=== PATIENT | male | born 1965 | race Caucasian/White ===

== ENCOUNTER 2019-04-03 08:51 | Observation (INO) | payer OTHER, SELFPAY ==
[2019-04-03] VITALS (14 sets, daily range): BP systolic 127–169; BP diastolic 73–106; PULSE 55–82; RESP 13–20; TEMP 36.5–36.7; O2SAT 95–100; BMI 29.7; BMI 29.4
--- NOTE | 2019-04-03 08:55 | EKG12_ITS ---
Test Reason : CP Blood Pressure : / mmHG Vent. Rate : 064 BPM Atrial Rate : 064 BPM P-R Int : 192 ms QRS Dur : 098 ms QT Int : 406 ms P-R-T Axes : 039 -05 020 degrees QTc Int : 418 ms Normal sinus rhythm Normal ECG Confirmed by AIMEE MCCURDY, VICTORIA ([id number]), general expeditor ANKIT CARUSO ([id number]) on 04/08/2019 10:27:52 AM Referred By: KARRIE Confirmed By:ELOISA YU MD
--- NOTE | 2019-04-03 08:55 | CT_ITS ---
STUDY: CT BRAIN WITHOUT CONTRAST REASON FOR EXAM: Male, 53 years old. Blurred vision in the left eye. RADIATION DOSAGE (If Supplied By Facility): CTDIvol = ( 44.99 ) mGy, DLP = ( 829.85 ) mGycm TECHNIQUE: Transaxial CT imaging of the brain was performed without administration of intravenous contrast material. Individualized dose optimization techniques were used for this CT. COMPARISON: No relevant priors. FINDINGS: Normal soft tissue structures. Normal calvarium. Normal size ventricles and extra-axial spaces for the patient's age. Normal white matter tracts of the cerebral hemispheres. Normal basal ganglia and thalami. Normal brainstem. Normal cerebellum. There is no intracranial hemorrhage. There are no findings of an acute ischemic infarction. Normal visualized paranasal sinuses. CT/Brain/Head without Contrast IMPRESSION: Normal unenhanced CT scan of the brain. Electronically Signed: Charli Birch, at 9:39 EDT , Service support ,
--- NOTE | 2019-04-03 09:01 | RAD_ITS ---
STUDY: X-RAY CHEST REASON FOR EXAM: Male, 53 years old. Chest pain. TECHNIQUE: Single AP portable view of the chest. COMPARISON: Comparison is made with prior examination dated May 23, 2012. FINDINGS: The lungs are clear and expanded. Scattered calcified granulomas. There is no demonstrated pleural abnormality. Normal size heart. Normal mediastinum and cherry. Normal visualized pulmonary arteries. Normal visualized aortic arch and descending thoracic aorta. There are diffuse degenerative changes of the visualized thoracic spine. Normal visualized ribs, clavicles, and shoulders. There is no demonstrated abnormality of the visualized soft tissue structures of the upper abdomen. RAD/Chest 1 View (Portable) IMPRESSION: No acute abnormality is seen. Stable examination. Electronically Signed: Charli Birch, at 9:30 EDT , Service support ,
--- NOTE | 2019-04-03 09:04 | ED.VIS.GEN ---
History of Present Illness Chief Complaint: Chest Pain Informant: Patient Onset: Days Context: Gradual Onset Timing: Intermittent Current Severity: Moderate Maximum Severity: Moderate Narrative: The patient presents to the emergency department with intermittent chest tightness and changes in vision in the right eye. The patient states last week, he noticed that his right eye seemed hazy. He states that it was more blurry throughout the entire eye. He denied headache at the time. He states he is been dealing with a lot of anxiety and actually follow with his primary care 3 days ago and started Celexa. He states today, it returned. He states that just seems like there is more blurriness in the right eye. He states he started to worry and went and had his blood pressure checked. He states that his blood pressure was elevated at 150/110. Normally, his blood pressure 1 in the 120 systolic. He does take antihypertensives. He states that he was feeling tightness across his chest that he contributed to anxiety. It was not radiating. It is not exertional. Patient does endorse a stressful job. He denies any trouble with speech. He denies any changes in gait. He denies any weakness. Prior similar symptoms: No Recent Illness/Hospitalization: No Past Medical History - Allergies and Home Meds Allergies/Adverse Reactions: Allergies acetaminophen [From Percocet] Allergy (Verified 04/03/19 08:56) Itching oxycodone [From Percocet] Allergy (Verified 04/03/19 08:56) Itching Primary Care Physician: Chiki Coyne MD [STAFF PHYSICIAN] - Prior records reviewed: Yes Past Medical History: - - htn Surgical History: noncontributory Lives: With Family Smoking Status: Never smoker Alcohol: None Review of Systems General: Denies: Chills, Fever, Sweats Eyes: Reports: Blurred vision - right. Denies: Visual changes - bilaterally, Diplopia ENT: Denies: Rhinorrhea, Sore throat Cardiovascular: Reports: Chest pain. Denies: Palpitations Respiratory: Denies: Dyspnea, Cough, Dyspnea on exertion Gastrointestinal: Denies: Abdominal pain, Nausea, Vomiting, Diarrhea, Melena, Hematochezia Genitourinary: Denies: Dysuria, Hematuria, Frequency Musculoskeletal: Denies: Back pain, Extremity Pain Skin: Denies: Rash, Wounds Neurological: Denies: Headache, Weakness, Numbness Physical Exam Vital Signs/Narrative: Vital Signs Temp Pulse Resp BP Pulse Ox 04/03/19 08:59 65 20 H 145/105 H 99 04/03/19 08:52 97.7 F L 66 17 169/106 H 96 Diagnostic/Tx/Re-eval Chest X-Ray - ED: 1 View, Read by ED Physician, Read by Radiologist, Normal, Heart, Lungs Clinical Impression(s) from Imaging Studies Brain CT 04/03/19 08:55 IMPRESSION: Normal unenhanced CT scan of the brain. Electronically Signed: Charli Queta, at 9:39 EDT , Service support , Chest X-Ray 04/03/19 09:01 IMPRESSION: No acute abnormality is seen. Stable examination. Electronically Signed: Charli Queta, at 9:30 EDT , Service support , Abnormal Lab Results 04/03/19 04/03/19 09:05 09:05 WBC 7.7 RBC 4.98 Hgb 15.2 Hct 45.9 MCV 92.2 MCH 30.5 MCHC 33.1 RDW Std Deviation 40.3 RDW Coeff of Yang 11.9 Plt Count 250 MPV 8.9 Immature Gran % (Auto) 0.300 Neut % (Auto) 70.8 H Lymph % (Auto) 19.2 [place] % (Auto) 8.4 Eos % (Auto) 0.9 Baso % (Auto) 0.4 Absolute Neuts (auto) 5.4 Absolute Lymphs (auto) 1.47 Nucleated RBC % 0 Sodium 140 Potassium 4.1 Chloride 106 Carbon Dioxide 26.0 Anion Gap 8 BUN 18 Creatinine 1.41 H Estim Creat Clear Calc 59.89 Est GFR (MDRD) Af Amer 67 Est GFR (MDRD) Non-Af 56 L BUN/Creatinine Ratio 12.8 Glucose 111 H Calcium 9.1 Magnesium 2.1 Troponin I < 0.015 TSH 1.18 - Rhythm Strip Rhythm Strip: Sinus Rhythm Rate: 70 Ectopy: None - EKG Initial EKG Interpretation: Sinus Rhythm, No Acute Injury Pattern Prior: Unchanged - Medical Decision Making The patient really had no chest pain. He was complaining of some mild tightness that was not exertional. He is been having intermittent visual changes within the right eye. There is no visual field cut. He has normal extraocular muscles. He has an NIH of 0. Metabolic work-up was pursued. EKG was obtained on patient arrival which showed sinus rhythm without acute ischemia. It was unchanged from prior. The patient's blood pressure had basically normalized without intervention. I did obtain a head CT which was unremarkable. I am not sure if the symptoms or related more towards TIA or hypertension. I long discussion with the patient at the bedside. They are uncomfortable without having definitive diagnosis. Given his age and significant risk factors, I do feel a TIA work-up would be appropriate. The patient was discussed with the hospitalist. 1. Right eye visual change 2. TIA ED Disposition - Plan for ED Patient: Instructions: Blurred Vision, CHEST PAIN, Uncertain Cause Referrals: Chiki Coyne MD [STAFF PHYSICIAN] -
[2019-04-03] MEDS: 0.9% Normal Saline 1,000 ML 150 ML IV (09:12)
[2019-04-03] MEDS: Aspirin 81 MG TAB.CHEW 324 MG PO (09:12)
[2019-04-03 09:16] LABS: Absolute Lymphocyte Count 1.47 X10^3/uL (0.83-4.51); Absolute Neutrophil Count 5.4 X10^3/uL (2.0-7.7); Basophil# 0.03 X10^3/uL; Basophil% 0.4 % (0-1); Eosinophil# 0.07 X10^3/uL; Eosinophils% 0.9 % (0-5); Hematocrit 45.9 % (40-54); Hemoglobin 15.2 g/dL (13.0-16.5); Lymphocyte # 1.47 X10^3/ul (4.0); Lymphocyte % 19.2 % (19-41); Mean Corp Hgb Conc 33.1 g/dL (32-36); Mean Corpuscular Hgb 30.5 pg (27.0-32.0); Mean Corpuscular Volume 92.2 fL (80-94); Mean Platelet Vol. 8.9 fl (6.2-12.0); Monocyte# 0.64 X10^3/uL; Monocyte% 8.4 % (0-10); NRBC Flagged by Analyzer 0 % (0-5); Neutrophil # 5.43 X10^3/uL (2.7-7.7); Neutrophil % 70.8 % (47-70); Platelet Count 250 K/mm3 (150-450); RBC Distribution Width CV 11.9 % (11.6-14.6); RBC Distribution Width SD 40.3 fl (35.1-43.9); Red Blood Count 4.98 M/mm3 (4.6-6.2); White Blood Count 7.7 K/mm3 (4.4-11.0)
[2019-04-03 09:38] LABS: Anion Gap 8 (5-15); BUN 18 mg/dL (7-18); BUN/Creat Ratio 12.8 RATIO (10-20); Calcium,Total 9.1 mg/dL (8.5-10.1); Chloride 106 mmol/L (98-107); Creatinine, Serum 1.41 mg/dL (0.70-1.30); EST Glomerular Filtration Rate 56 mL/min (>60); Est Glom Filt Rate - Afr Amer 67 mL/min (>60); Estimated Creatinine Clearance 59.89 ml/min; Glucose 111 mg/dL (74-106); Magnesium 2.1 mg/dL (1.6-2.6); Potassium 4.1 mmol/L (3.5-5.1); Sodium Level 140 mmol/L (136-145); Thyroid Stim Hormone (TSH) 1.18 uIU/mL (0.358-3.74)
--- NOTE | 2019-04-03 10:42 | NURSING ---
DR JENNIE YOON
--- NOTE | 2019-04-03 10:47 | NURSING ---
PCU TIA OBS SEMENTI
--- NOTE | 2019-04-03 11:53 | MRI_ITS ---
STUDY: MRA NECK WITHOUT CONTRAST REASON FOR EXAM: Male, 53 years old. Blurry vision TECHNIQUE: Source images were obtained, MIPs were performed. The study was performed unenhanced. COMPARISON: None. FINDINGS: RIGHT CAROTID ARTERIES: Normal right common carotid artery (CCA). There is moderate atherosclerotic plaque formation with moderate narrowing of the carotid bulb. There is moderate atherosclerotic plaque formation of the origin of the right internal carotid artery with an estimated stenosis of 50-69% stenosis. Normal visualized cervical portion of the right internal carotid artery. Normal origin of the right external carotid artery (ECA). LEFT CAROTID ARTERIES: Normal left common carotid artery (CCA). There is moderate atherosclerotic plaque formation with moderate narrowing of the carotid bulb. There is mild atherosclerotic plaque formation of the origin of the left internal carotid artery with less than 50% cross sectional diameter stenosis. Normal visualized cervical portion of the left internal carotid artery. Normal origin of the left external carotid artery (ECA). VERTEBRAL ARTERIES: Normal antegrade flow within the bilateral vertebral artery without a hemodynamically significant stenosis. MRI/MRA Neck without Contrast IMPRESSION: 1. Moderate (60%) stenosis right carotid stenosis. 2. Mild (40%) left carotid stenosis. 3. Patent vertebral arteries bilaterally. Electronically Signed: Abraham Gresham MD at 15:57 EDT Tel , Service support ,
--- NOTE | 2019-04-03 11:53 | MRI_ITS ---
STUDY: MRA OF THE HEAD WITHOUT CONTRAST REASON FOR EXAM: Male, 53 years old. Headache with blurred vision in right eye TECHNIQUE: 3-D [id number] (TOF) imaging was performed with MIPs. The study was performed unenhanced. COMPARISON: None. FINDINGS: Normal bilateral petrous carotid arteries. Normal right cavernous carotid artery with a normal supraclinoid bifurcation. Normal left cavernous carotid artery with a normal supraclinoid bifurcation. Normal right A1 segments of the anterior cerebral artery. Normal left A1 segments of the anterior cerebral artery. Anterior communicating artery not visualized consistent with normal variant Normal bilateral A2 segments of the anterior cerebral arteries. Normal right M1 and M2 segments of the middle cerebral arteries, with a normal M1 bifurcation. Normal left M1 and M2 segments of the middle cerebral arteries, with a normal M1 bifurcation. Posterior communicating arteries not visualized consistent with normal variant). Normal bilateral vertebral arteries. Normal basilar artery with a normal basilar bifurcation. The visualized bilateral superior cerebellar (SCA) arteries are normal. Normal bilateral P1, P2 and visualized P3 segments of the posterior cerebral arteries. There is no demonstrated aneurysm of the [place]. There is no major vessel occlusion or hemodynamically significant stenosis. There is no demonstrated abnormality of the visualized brain. MRI/MRA Head ONLY without Contrast IMPRESSION: Normal MRA of the head Electronically Signed: Chiki Powers MD at 16:34 EDT , Service support ,
--- NOTE | 2019-04-03 11:53 | MRI_ITS ---
STUDY: MRI BRAIN WITHOUT CONTRAST REASON FOR EXAM: Male, 53 years old. Headache, blurry vision TECHNIQUE: Standardized multiplanar fat and water weighted pulse sequences were obtained. COMPARISON: CT earlier today FINDINGS: Normal size of the ventricles and extra-axial spaces for the patient's age. Normal white matter tracts of the supratentorial brain. There is no evidence for recent intracranial ischemia or other cause of cytotoxic edema on diffusion weighted imaging (DWI). Normal T2* images of the brain without demonstrated susceptibility artifact. There is no demonstrated hemosiderin stain. Normal bilateral basal ganglia. Normal thalami. There is no extra-axial fluid accumulation. Normal flow voids within the major intracranial circulation suggesting patency by spin echo criteria. Normal sella turcica, pituitary gland, infundibular stalk, optic chiasm and hypothalamus. Normal tectal plate and pineal gland. Normal midbrain, brittni and medulla. Normal cerebellum. Normal basal cisterns. Normal bilateral temporal bones. Normal bilateral internal auditory canals. No demonstrated orbital abnormality, within the constraints of a routine brain study. Normal visualized paranasal sinuses. Normal calvarium and skull base. Normal visualized soft tissue structures. Normal visualized upper cervical spine. MRI/Brain without Contrast IMPRESSION: Normal unenhanced MRI of the brain. Electronically Signed: Abraham Gresham MD at 15:59 EDT Tel , Service support ,
[2019-04-03 12:04] LABS: Erythrocyte Sedimentation Rate 2 mm/hr (0-20)
--- NOTE | 2019-04-03 12:06 | EKG12_ITS ---
Test Reason : CP Blood Pressure : / mmHG Vent. Rate : 054 BPM Atrial Rate : 054 BPM P-R Int : 196 ms QRS Dur : 096 ms QT Int : 440 ms P-R-T Axes : 044 -06 012 degrees QTc Int : 417 ms Sinus bradycardia Otherwise normal ECG Confirmed by MALIK MCCURDY, MEMO ([id number]), publication editor ANKIT CARUSO ([id number]) on 04/08/2019 11:50:46 AM Referred By: JENNIE Confirmed By:MEMO GAN MD
--- NOTE | 2019-04-03 12:16 | HP.PCM_ITS ---
Problem List (1) HTN (hypertension) Status: Chronic (2) Anxiety Status: Chronic History of Present Illness Date of Admission: 04/03/19 Chief Complaint: Chest pressure, right eye vision changes. The patient is a 53 year old M who presents the emergency room due to right eye vision changes and intermittent chest tightness. He reports he initially noticed right eye white spots approximately 1 week ago which he contributed to high blood pressure. Patient reports he has been having increased anxiety and saw his primary care provider for help with this. He was placed on Celexa and has been taking it for 3 days. He denies numbness, tingling, weakness, speech changes or headache. He reports today he was at work sitting down and again developed right eye vision changes. He also reports during that time he had a b rief episode of chest tightness. 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 He reports this is high for him and his systolic blood pressure typically runs. Given his vision changes and chest discomfort, he was referred to the emergency room. He reports a few weeks ago he had some shortness of breath which has since resolved. He denies exertional shortness of breath or chest pain. He has a past medical history of hypertension and anxiety. Past Medical History Past Medical History (Chronic Problems): Chronic Problems HTN (hypertension) (Chronic) Anxiety (Chronic) Allergies acetaminophen [From Percocet] Allergy (Verified 04/03/19 08:56) Itching oxycodone [From Percocet] Allergy (Verified 04/03/19 08:56) Itching Home Medications: Ambulatory Orders Medication Instructions Recorded Citalopram [Celexa] 20 mg PO DAILY 04/03/19 Lisinopril [Zestril] 5 mg PO DAILY 04/03/19 Metoprolol Tartrate [Lopressor 25 mg PO BID 04/03/19 (beta sang)] Surgical History: appendectomy, - - Status post nephrectomy, knee surgery, back surgery x3. Psychiatric History: Anxiety Lives: With Family Smoking Status: Never smoker Alcohol: Occasional Drugs: None - *Family History Maternal History Items: Heart Disease, Hypertension Paternal History Items: Stroke Review of Systems Constitutional: Denies: Chills, Fever, Weight Change HEENT: Denies: Head Aches, Sinus Congestion, Sinus Drainage Cardiovascular: Reports: - - Intermittent chest tightness. Denies: Chest Pain, Palpitations Respiratory: Denies: Cough, Shortness of breath at rest, Sputum production Gastrointestinal: Denies: Abdominal Pain, Nausea, Vomiting Genitourinary: Denies: Dysuria Musculoskeletal: Denies: Joint Pain, Joint Tenderness Skin: Denies: Rash, Wounds Neurological: Reports: Blurred vision - Right eye. Denies: Change in Speech, Slurred speech, Confusion, Focal weakness, Numbness, Tingling Psychiatric: Reports: Anxiety Hematologic/ Lymphatic: Denies: Easy Bruising, Easy Bleeding VTE Information - Inpt Only VTE Present on Admission: No VTE Mechan Device Prophylaxis: None VTE Pharm Prophylaxis ordered?: Yes - Physical Exam General: Alert, Oriented x3, Cooperative HEENT: Atraumatic, PERRLA, EOMI, Normocephalic Neck: Supple, No JVD, Negative Carotid Bruits Lungs: Clear to auscultation, Normal air movement Cardiovascular: Regular rate, Regular Rhythm, Normal S1, Normal S2, No murmurs Abdomen: Bowel Sounds Present, Soft, Non Tender, Non-Distended Extremities: No clubbing, No cyanosis, No edema, Capillary Refill Less than 3 Seconds Skin: No rashes, No breakdown Musculoskeletal: No Tenderness to Palpation of Joints or Extremities Neurological: Cranial nerves II-XII grossly intact, Neuro grossly intact Psych/Mental Status: Anxious Vital Signs Temp Pulse Resp BP Pulse Ox 97.8 F 60 16 133/85 H 99 04/03/19 11:42 04/03/19 11:53 04/03/19 11:42 04/03/19 11:42 04/03/19 11:42 Oxygen Delivery Method Room Air Weight: 193 lb 9.6 oz Body Mass Index (BMI) 29.4 Laboratory Tests Past 24 Hrs 04/03/19 04/03/19 04/03/19 09:05 09:05 09:05 WBC 7.7 RBC 4.98 Hgb 15.2 Hct 45.9 MCV 92.2 MCH 30.5 MCHC 33.1 RDW Std Deviation 40.3 RDW Coeff of Yang 11.9 Plt Count 250 MPV 8.9 Immature Gran % (Auto) 0.300 Neut % (Auto) 70.8 H Lymph % (Auto) 19.2 [place] % (Auto) 8.4 Eos % (Auto) 0.9 Baso % (Auto) 0.4 Absolute Neuts (auto) 5.4 Absolute Lymphs (auto) 1.47 Nucleated RBC % 0 ESR 2 Sodium 140 Potassium 4.1 Chloride 106 Carbon Dioxide 26.0 Anion Gap 8 BUN 18 Creatinine 1.41 H Estim Creat Clear Calc 59.89 Est GFR (MDRD) Af Amer 67 Est GFR (MDRD) Non-Af 56 L BUN/Creatinine Ratio 12.8 Glucose 111 H Calcium 9.1 Magnesium 2.1 Troponin I < 0.015 TSH 1.18 Assessment/Plan 1. Chest tightness, rule out ACS-initial troponin negative. EKG without ST-T changes. Trend enzymes. Stress test in a.m. Continue aspirin, beta-sang. 2. Right eye vision changes, rule out CVA-PT/OT/ST. Aspirin, statin. Lipid panel in a.m. Brain CT unremarkable. Obtain MRI of brain, MRA of head and neck. 3. Anxiety-recently started on Celexa by primary care provider. Recommend outpatient counseling as well. 4. Hypertension-lisinopril on hold, continue metoprolol regimen. As needed hydralazine for systolic blood pressure greater than 160. 5. Chronic kidney disease stage III, status post nephrectomy secondary to donated kidney-Per patient, creatinine at baseline. Gentle IV fluids, trend BMP. DVT prophylaxis-Lovenox subcu This patient was seen by DASH Ferrara under the supervision of Dr. Cooney.
[2019-04-03] MEDS: 0.9% Normal Saline 1,000 ML 125 ML IV ×2 (12:19→21:54)
--- NOTE | 2019-04-03 12:52 | CASEMGMT ---
Pt informed nurse that he does have LW and HCPOA and he is aware there is not a copy in his medical record and he will bring a copy in. TILA Thornton
[2019-04-03] MEDS: 0.9% NaCl Peripheral Flush Adult/Peds IV (15:45)
--- NOTE | 2019-04-03 18:00 | CDU_ITS ---
Reason For Study: carotid stenosis by MRA Rt. Velocities/BP Lt. Velocities/BP Prox CCA 126.8/31.7 cm/sec. Prox CCA 127.1/34.0 cm/sec. Mid CCA 93.0/26.5 cm/sec. Mid CCA 116.2/34.0 cm/sec. Dist CCA 89.0/27.8 cm/sec. Dist CCA 107.0/30.3 cm/sec. Prox ICA 72.5/26.9 cm/sec. Prox ICA 94.4/18.3 cm/sec. Mid ICA 77.7/29.5 cm/sec. Mid ICA 88.3/30.6 cm/sec. Dist ICA 70.0/31.6 cm/sec. Dist ICA 79.7/35.5 cm/sec. Rt. ICA/CCA = 77.7/93.0=0.8. Lt. ICA/CCA = 94.4/116.2=0.8. Prox ECA 84.2/12.5 cm/sec. Prox ECA 91.6/16.7 cm/sec. Rt. Vert. 443./15.0 cm/sec. Lt. Vert. 63.6/24.1 cm/sec. Right Extracranial There is intimal thickening but no significant atherosclerotic plaque noted in the right common carotid artery. There is intimal thickening but no significant atherosclerotic plaque noted in the right internal carotid artery. Distal ICA is tortuous. There is no significant atherosclerotic plaque noted in the right external carotid artery. Antegrade flow is noted in the right vertebral artery. Left Extracranial There is intimal thickening but no significant atherosclerotic plaque noted in the left common carotid artery. There is intimal thickening but no significant atherosclerotic plaque noted in the left internal carotid artery. There is intimal thickening but no significant atherosclerotic plaque noted in the left external carotid artery. Antegrade flow is noted in the left vertebral artery. Procedure Carotid Duplex [id number]. The exam was diagnostic. Exam performed in department. Interpretation Summary Minimal plague right mid common carortid No significant plague right internal carotid with <50% stenosis. Tortuous right internal carotid. <50% stenosis right external carotid. Intimal thickening left common carotid <50% stenosis left internal carotid. <50% stenosis left external carotid Patent and antegrade vertebrals bilaterally Ordering Physician: Ayesha Cooney Referring Physician: Samuel Meeks Performed By: Balbina Joya RDCS, RVT
[2019-04-03] MEDS: Metoprolol Tartrate 25 MG Tablet PO (21:26)
[2019-04-03] MEDS: Atorvastatin Calcium 80 MG Tablet PO (21:27)
[2019-04-04] VITALS (10 sets, daily range): BP systolic 111–137; BP diastolic 66–86; PULSE 55–72; RESP 16–18; TEMP 36.2–36.6; O2SAT 97–100
--- NOTE | 2019-04-04 05:55 | EKG12_ITS ---
Test Reason : AM EKG Blood Pressure : / mmHG Vent. Rate : 055 BPM Atrial Rate : 055 BPM P-R Int : 192 ms QRS Dur : 100 ms QT Int : 448 ms P-R-T Axes : 059 014 011 degrees QTc Int : 428 ms Sinus bradycardia Nonspecific T- wave Abnormality Confirmed by MALIK MCCURDY, MEMO ([id number]), editor book ANKIT CARUSO ([id number]) on 04/08/2019 11:50:19 AM Referred By: JENNIE Confirmed By:MEMO GAN MD
[2019-04-04] MEDS: Lisinopril 10 MG Tablet PO (06:26)
[2019-04-04] MEDS: Aspirin E.C. 81 MG Tablet PO (06:26)
[2019-04-04 06:33] LABS: ALB/GLOB Ratio 1.1 RATIO (0.9-2.4); AST(SGOT) 7 U/L (15-37); Alanine Aminotransfer ALT/SGPT 15 U/L (16-61); Albumin, Serum 3.3 g/dL (3.2-5.0); Alkaline Phosphatase 36 U/L (45-117); Anion Gap 6 (5-15); BUN 14 mg/dL (7-18); BUN/Creat Ratio 10.9 RATIO (10-20); Calcium,Total 8.2 mg/dL (8.5-10.1); Chloride 110 mmol/L (98-107); Cholesterol 148 mg/dL (200); Creatinine, Serum 1.29 mg/dL (0.70-1.30); EST Glomerular Filtration Rate 62 mL/min (>60); Est Glom Filt Rate - Afr Amer 74 mL/min (>60); Estimated Creatinine Clearance 63.33 ml/min; Globulin 2.9 g/dL (2.2-4.2); Glucose 101 mg/dL (74-106); High Density Lipoprotein 40 mg/dL; Potassium 3.9 mmol/L (3.5-5.1); Protein, Total 6.2 g/dL (6.4-8.2); Sodium Level 142 mmol/L (136-145); Triglycerides 83 mg/dL; Very Low Density Lipoprotein 17 mg/dL (5-40)
[2019-04-04] MEDS: 0.9% Normal Saline 1,000 ML 125 ML IV (09:24)
[2019-04-04] MEDS: Citalopram 20 MG Tablet PO (09:25)
[2019-04-04] MEDS: Metoprolol Tartrate 25 MG Tablet PO (09:25)
--- NOTE | 2019-04-04 10:00 | STRESSREP ---
Stress Test Report Exercise myocardial perfusion stress test. 53-year-old man with a history of dizziness. Stress protocol: Resting EKG demonstrates sinus bradycardia with a rate of 54 bpm normal intervals are noted resting blood pressures 136/82 mmHg. The patient exercised according to regular Vicente protocol for total duration of 11 minutes completing 2 minutes into stage IV. The maximum heart rate attained was 141 bpm which was 84% of maximum predicted heart rate the maximum workload was 11.6 metabolic equivalents. At rest there were no ST or T wave changes no suggest ischemia peak exercise upsloping ST changes only were noted with no meet the criteria for ischemia. No clinical angina was noted. The resting blood pressure 136/82 with a peak blood pressure 166/78. Myocardial perfusion protocol. 11.8 mCi of technetium 99m sestamibi was injected at rest. The patient exercised according to regular Vicente protocol peak exercise 33.3 mCi of technetium 99m sestamibi was injected stress images were obtained stress and rest images were reconstructed and compared in the short axis vertical and horizontal long axis. Gated images were also obtained Perfusion SPECT analysis: Review of the stress images demonstrate normal uptake of tracer noted in all rest myocardium the rest images similar demonstrate normal uptake of tracer noted in all rest myocardium no areas of reversibility are noted suggest ischemia no previous infarct is noted. Gated SPECT analysis: The gated ejection fraction is noted to be 66% [place] Conclusion: Normal exercise myocardial perfusion stress test with no evidence of ischemia. Preserved ejection fraction.
--- NOTE | 2019-04-04 10:54 | PCM.WORK.EX ---
Work/School Excuse Work/School Excuse for:: Patient Please excuse this person from:: Work From: 04/03/19 through: 04/14/19
--- NOTE | 2019-04-04 11:02 | PCM.DC ---
- Discharge Diagnoses Current Active Problems: Current Active and Chronic Problems HTN (hypertension) Chest pressure, ACS ruled out Right eye vision changes, TIA/CVA ruled out You will use the following diet at home:: Other - Low-fat, low-cholesterol Discharge Activity: Return to Normal Activity Call your doctor if you observe: Shortness of breath, Dizziness, Fainting spells, Chest pain Allergies/Adverse Reactions: Allergies acetaminophen [From Percocet] Allergy (Verified 04/03/19 08:56) Itching oxycodone [From Percocet] Allergy (Verified 04/03/19 08:56) Itching Medications to take at Discharge Citalopram [Celexa] 20 mg PO DAILY 04/03/19 Metoprolol Tartrate [Lopressor (beta sang)] 25 mg PO BID 04/03/19 Atorvastatin Calcium [Lipitor] 10 mg PO QHS #60 tab 04/04/19 Lisinopril [Zestril] 10 mg PO DAILY #60 tab 04/04/19 The following prescriptions were given: Atorvastatin Calcium [Lipitor] 10 mg PO QHS #60 tab Transmission Status: Pending to [facility] Lisinopril [Zestril] 10 mg PO DAILY #60 tab Transmission Status: Pending to [facility] Primary Care Physician: Chiki Coyne MD [STAFF PHYSICIAN] - Please follow up with your Primary Care Physician in: Ophthalmology, within 1 week. Test Results: Test results from this visit will be discussed in further detail at your follow-up appointment, if applicable. Please Follow Up With: Samuel Meeks III, MD When: Within one week. Please Follow Up With: Primary Waiter/Waitress Bar When: 3-6 months for routine follow up. Proposed Discharge Date: 04/04/19
--- NOTE | 2019-04-04 11:09 | PCM.DC.SUM ---
Discharge Date and Diagnosis Date of Admission: 04/03/19 Date of Discharge: 04/04/19 - Primary Discharge Diagnosis 1. Chest tightness, ACS ruled out 2. Right eye vision changes, CVA ruled out 3. Anxiety, worsened recently 4. Hypertension 5. Chronic kidney disease stage II-III, status post nephrectomy 6. Mild to moderate carotid stenosis - Secondary Discharge Diagnosis Chronic Problems HTN (hypertension) (Chronic) Anxiety (Chronic) Hospital Course and Treatment Imaging Results: Diagnostic Data Brain CT 04/03/19 08:55 IMPRESSION: Normal unenhanced CT scan of the brain. Electronically Signed: Charli Queta, at 9:39 EDT , Service support , Chest X-Ray 04/03/19 09:01 IMPRESSION: No acute abnormality is seen. Stable examination. Electronically Signed: Charli Birch, at 9:30 EDT , Service support , Brain MRI 04/03/19 11:53 IMPRESSION: Normal unenhanced MRI of the brain. Electronically Signed: Abraham Gresham MD at 15:59 EDT Tel , Service support , Head MRA 04/03/19 11:53 IMPRESSION: Normal MRA of the head Electronically Signed: Chiki Powers MD at 16:34 EDT , Service support , Neck MRA 04/03/19 11:53 IMPRESSION: 1. Moderate (60%) stenosis right carotid stenosis. 2. Mild (40%) left carotid stenosis. 3. Patent vertebral arteries bilaterally. Electronically Signed: Abraham Gresham MD at 15:57 EDT Tel , Service support , Operations: None Procedures: EKG, Stress test, - - Carotid ultrasound Summary of Care Provided: The patient is a 53 year old M admitted 04/03/2019 due to chest pressure and right eye vision changes. 1. Chest tightness, ACS ruled out-troponin negative. EKG without ST-T changes. Patient underwent stress test which showed no evidence of ischemia, gated ejection fraction 66%. Follow-up with primary care physician in 1 week. 2. Right eye vision changes, CVA ruled out- Brain CT unremarkable. MRI of brain normal. MRA of head normal. MRA of neck showed moderate, 60% stenosis right carotid and mild 40% left carotid stenosis. 3. Anxiety-recently started on Celexa by primary care provider. Recommend outpatient counseling as well. 4. Hypertension-Home lisinopril regimen increased to 10 mg daily. Continue home metoprolol regimen. 5. Chronic kidney disease stage II-III, status post nephrectomy secondary to donated kidney-creatinine improved from 1.4-1.2 with IV fluids. Patient reports his baseline creatinine is about 1.4-1.5. Recommend at least yearly routine follow-up with primary regulator pin inserter at [facility]. 6. Carotid artery disease- MRA of neck showed moderate, 60% stenosis right carotid and mild 40% left carotid stenosis. Carotid ultrasound results pending, preliminary shows no significant stenosis. Initiated on low-dose atorvastatin 10 mg p.o. nightly. Recommend further follow-up with PCP for routine monitoring. General: Alert, Oriented x3, Cooperative HEENT: Atraumatic, PERRLA, EOMI, Normocephalic Neck: Supple, No JVD, Negative Carotid Bruits Lungs: Clear to auscultation, Normal air movement Cardiovascular: Regular rate, Regular Rhythm, Normal S1, Normal S2, No murmurs Abdomen: Bowel Sounds Present, Soft, Non Tender, Non-Distended Extremities: No clubbing, No cyanosis, No edema, Capillary Refill Less than 3 Seconds Skin: No rashes, No breakdown Musculoskeletal: No Tenderness to Palpation of Joints or Extremities Neurological: Cranial nerves II-XII grossly intact, Neuro grossly intact Psych/Mental Status: Anxious Patient seen and examined prior to discharge. Physical assessment as noted above. Patient is stable for discharge with follow up recommendations as noted above. This patient was seen by DASH Ferrara under the supervision of Dr. Cooney. - Physical Exam Vital Signs Temp Pulse Resp BP Pulse Ox 97.9 F 71 16 112/81 H 100 04/04/19 09:02 04/04/19 09:25 04/04/19 09:02 04/04/19 09:25 04/04/19 09:02 Oxygen Delivery Method Room Air Weight: 193 lb 9.583 oz Body Mass Index (BMI) 29.4 Orthostatic Vital Signs Start: 04/04/19 06:23 Freq: q24h Status: Active Protocol: Activity Type Activity Date Activity User E-Sign Co-Sign Detail Recorded Client Recorded Date Recorded By Document 04/04/19 06:23 CAD [id number] 04/04/19 06:26 CAD 04/04/19 06:23 Orthostatic Vitals Standing -Blood Pressure (90/60-120/80) 111/83 H -Extremity Use Right Arm -Pulse Rate (60-100) 62 Sitting -Blood Pressure (90/60-120/80) 135/84 H -Extremity Use Right Arm -Pulse Rate (60-100) 57 L Lying -Blood Pressure (90/60-120/80) 129/86 H -Extremity Use Right Arm -Pulse Rate (60-100) 57 L Intake and Output for Last 24 Hours 04/02/19 04/03/19 04/04/19 23:59 23:59 23:59 Intake Total 1958.59 / 1959.59 1219.58 / 1219.58 Balance 9.59 / 1959.59 1219.58 / 1219.58 Laboratory Tests Past 24 Hrs 04/03/19 04/03/19 04/03/19 09:05 12:15 17:36 ESR 2 Sodium Potassium Chloride Carbon Dioxide Anion Gap BUN Creatinine Estim Creat Clear Calc Est GFR (MDRD) Af Amer Est GFR (MDRD) Non-Af BUN/Creatinine Ratio Glucose Calcium Total Bilirubin AST ALT Alkaline Phosphatase Troponin I < 0.015 < 0.015 Total Protein Albumin Globulin Albumin/Globulin Ratio Triglycerides Cholesterol LDL Cholesterol VLDL Cholesterol HDL Cholesterol 04/04/19 05:05 ESR Sodium 142 Potassium 3.9 Chloride 110 H Carbon Dioxide 26.0 Anion Gap 6 BUN 14 Creatinine 1.29 Estim Creat Clear Calc 63.33 Est GFR (MDRD) Af Amer 74 Est GFR (MDRD) Non-Af 62 BUN/Creatinine Ratio 10.9 Glucose 101 Calcium 8.2 L Total Bilirubin 1.20 H AST 7 L ALT 15 L Alkaline Phosphatase 36 L Troponin I Total Protein 6.2 L Albumin 3.3 Globulin 2.9 Albumin/Globulin Ratio 1.1 Triglycerides 83 Cholesterol 148 LDL Cholesterol 91 VLDL Cholesterol 17 HDL Cholesterol 40 Discharge Diet: Low fat/ Low Cholesterol Discharge Activity: Return to Normal Activity Call your doctor if you observe: Shortness of breath, Dizziness, Fainting spells, Chest pain Home Medications: Medications to take at Discharge Citalopram [Celexa] 20 mg PO DAILY 04/03/19 Metoprolol Tartrate [Lopressor (beta sang)] 25 mg PO BID 04/03/19 Atorvastatin Calcium [Lipitor] 10 mg PO QHS #60 tab 04/04/19 Lisinopril [Zestril] 10 mg PO DAILY #60 tab 04/04/19 Following Prescrptions Were Given to Patient: Atorvastatin Calcium [Lipitor] 10 mg PO QHS #60 tab Transmission Status: Received by [facility] Lisinopril [Zestril] 10 mg PO DAILY #60 tab Transmission Status: Received by [facility] Primary Care Physician: Chiki Coyne MD [STAFF PHYSICIAN] - Please follow up with your Primary Care Physician in: Ophthalmology, within 1 week. Please Follow Up With: Samuel Meeks III, MD When: Within one week. Please Follow Up With: Primary Disability Liaison Officer When: 3-6 months for routine follow up. Disposition: Home Minutes spent on discharge:: 35 Patient Condition:: Stable Medical Necessity - Tobacco Use Smoking Status: Never smoker Meaningful Use Info Meaningful Use Diagnoses (Choose all that apply): None applicable
--- NOTE | 2019-04-04 12:16 | NURSING ---
reviewed dsicharge instructions with patient & voiced understanding , will follow up with PCP next week
== END 2019-04-04 11:05 | disposition home or self-care (01) ==
LOC: ED 09:18 → PCU 11:00
PROVIDERS: Nurse Practitioner Family; Admitting Provider Internal Medicine; Emergency Provider Emergency Medicine; Family Provider Family Medicine; PCP Family Medicine; Visit Provider Internal Medicine
DX: R07.89 Other chest pain (principal); F41.9 Anxiety disorder, unspecified; Z79.899 Other long term (current) drug therapy; I12.9 Hypertensive chronic kidney disease with stage 1 through stage 4 chronic kidney disease, or unspecified chronic kidney disease; N18.3 Chronic kidney disease, stage 3 (moderate); I65.23 Occlusion and stenosis of bilateral carotid arteries; Z90.5 Acquired absence of kidney
CPT/HCPCS: 36415; 70450; 70544; 70547; 70551; 71045; 78452; 80048; 80053; 80061; 83735; 84443; 84484; 85025; 85652; 93005; 93017; 93880; 96360; 96361; 97802; 99218; 99285; 99406; A9500; J7030; A4216; G0378

== ENCOUNTER 2022-05-24 10:53 | Emergency (ER) | payer BC, SELFPAY ==
[2022-05-24 10:55] VITALS: BP 151/137; PULSE 77; RESP 14; TEMP 36.6; O2SAT 98; BMI 30.8
--- NOTE | 2022-05-24 11:15 | US_ITS ---
STUDY: SCROTUM ULTRASOUND REASON FOR EXAM: Male, 56 years old. Left-sided pain TECHNIQUE: Ultrasound evaluation of the scrotum was performed with color Doppler and static sheets-scale imaging. COMPARISON: None. FINDINGS: RIGHT TESTICLE INTRATESTICULAR: There is a normal size of the right testicle. The right testicle measures 3.6 x 2.7 x 2.0 cm. There is a homogenous echotexture. There is normal arterial and normal venous vascularity. There is no demonstrated right testicular mass or cyst. EXTRATESTICULAR: The epididymis is normal in size. The epididymis head measures 1.3 cm. There is normal vascularity of the epididymis. There is a well-defined cystic structure within the epididymis, without internal echoes, consistent with an epididymal cyst. There is no demonstrated hydrocele. There is no demonstrated varicocele. There is no demonstrated extratesticular mass or cyst. LEFT TESTICLE INTRATESTICULAR: There is a normal size of the left testicle. The left testicle measures 3.2 x 2.8 x 2.3 cm. There is a homogenous echotexture. There is normal arterial and normal venous vascularity. There is no demonstrated left testicular mass or cyst. EXTRATESTICULAR: The epididymis is normal in size. The epididymis head measures 1.5 cm. There is increased (hyperemic) vascularity of the epididymis. 2 separate epididymal cysts. There is a small hydrocele. There is no demonstrated varicocele. There is no demonstrated extratesticular mass or cyst. US/Testicular with Arterial Flow IMPRESSION: Normal bilateral testicles, no sonographic evidence of intratesticular mass or torsion Increased vascularity to the left epididymis suggests left epididymitis. Bilateral epididymal cysts. Small left hydrocele Electronically Signed: Shaun Lemus MD at 12:23 EDT ,
[2022-05-24] MEDS: HYDROmorphone 1 MG/ML Syringe 0.5 MG IV (11:27)
[2022-05-24] MEDS: Ondansetron 4 MG/2 ML Vial IV (11:27)
[2022-05-24] MEDS: 0.9% Normal Saline 1,000 ML 250 ML IV (11:28)
[2022-05-24 11:39] LABS: Absolute Lymphocyte Count 1.65 X10^3/uL (0.83-4.51); Absolute Neutrophil Count 6.5 X10^3/uL (2.0-7.7); Basophil# 0.04 X10^3/uL; Basophil% 0.4 % (0-1); Eosinophil# 0.07 X10^3/uL; Eosinophils% 0.8 % (0-5); Hematocrit 47.1 % (40-54); Lymphocyte # 1.65 X10^3/ul (0.83-4.51); Mean Corpuscular Hgb 30.9 pg (27.0-32.0); Mean Corpuscular Volume 91.1 fL (80-94); Mean Platelet Vol. 8.9 fl (6.2-12.0); Monocyte# 0.88 X10^3/uL; Monocyte% 9.6 % (0-10); NRBC Flagged by Analyzer 0 % (0-5); Neutrophil # 6.51 X10^3/uL (2.7-7.7); Platelet Count 286 K/mm3 (150-450); RBC Distribution Width CV 12.9 % (11.6-14.6); RBC Distribution Width SD 42.8 fl (35.1-43.9); Red Blood Count 5.17 M/mm3 (4.6-6.2); White Blood Count 9.2 K/mm3 (4.4-11.0)
[2022-05-24 11:56] LABS: Anion Gap 6 (5-15); BUN 22 mg/dL (7-18); BUN/Creat Ratio 15.7 RATIO (10-20); Calcium,Total 9.6 mg/dL (8.5-10.1); Chloride 105 mmol/L (98-107); EST Glomerular Filtration Rate 55 mL/min (>60); Est Glom Filt Rate - Afr Amer 67 mL/min (>60); Estimated Creatinine Clearance 58.22 ml/min; Glucose 113 mg/dL (74-106); Potassium 4.2 mmol/L (3.5-5.1); Sodium Level 140 mmol/L (136-145)
[2022-05-24 12:31] LABS: Bacteria 0 SEEN /hpf (None Seen); Mucous, Urine 0 SEEN /hpf (<or=2+); Red Blood Cells-Urine 0 SEEN /hpf (0-5); Squamous Epithelial Cells - UA 0 SEEN /hpf (0-5); White Blood Cells 0 SEEN /hpf (0-5)
[2022-05-24] MEDS: HYDROmorphone 0.5 MG/0.5 ML SYRINGE IV (12:35)
[2022-05-24 12:36] VITALS: BP 171/100; PULSE 64; RESP 18; O2SAT 98
[2022-05-24 12:37] LABS: Color, Urine Yellow (Yellow); Glucose, Dipstick Normal (Normal); Ketone-Dipstick Negative (Negative); Leukocyte Esterase-Dipstick 25 /ul (Negative); Nitrite-Dipstick Negative (Negative); Occult Blood-Urine Negative /ul (Negative); Protein-Dipstick 30 mg/dl (Negative); Specific Gravity, Urine 1.015 (1.002-1.030); Urine Bilirubin Dipstick Negative (Negative); Urine Clarity Clear (Clear); Urine Urobilinogen Normal (Normal)
--- NOTE | 2022-05-24 14:23 | EX.ED.GUMALE ---
HPI History of Present Illness Chief Complaint: Male Pain/Injury Detail of Chief Complaint: Pain left groin, testicle and low back Informant: patient Pain Onset: Weeks (1.5) Context: Sudden Onset Timing: Continuous and Waxes and wanes Current Severity: Mild Maximum Severity: Severe Worsened by: Movement Relieved by: Nothing Appearance Lesion(s): No Genital Edema: No Penile Discharge Genital Discharge Amount: None Urinary Symptoms Genitourinary Symptoms: No Symptoms Related History Sexually: Active and Single Partner () Narrative Narrative: Patient is a 56-year-old male who presents with left lower back that radiates to the groin and to left testicle. He is status post nephrectomy. He donated his kidney to family member. He denies fever, chills night sweats. Denies history of renal ureterolithiasis. He denies direct trauma. This pain started after he was cutting firewood. He does have history of back problems with 2 prior back surgeries. He denies bowel or bladder dysfunction. Denies saddle paresthesia or anesthesia. Movement does exacerbate his pain at times. At times he cannot find a position of comfort. He was sent in by his doctor for evaluation. Prior similar symptoms: No Recent Illness/Hospitalization: No PFSH PFS Medical History Back pain Home Medications citalopram 20 mg tablet 20 mg PO DAILY 04/03/19 [History Last Taken Unknown] metoprolol tartrate 25 mg tablet 25 mg PO BID 04/03/19 [History Last Taken Unknown] hydrocodone 7.5 mg-acetaminophen 325 mg tablet 1 tab PO Q8H PRN pain 4 days #10 tabs 05/24/22 [Rx Last Taken Unknown] Allergy/AdvReac Type Severity Reaction Status Date / Time acetaminophen [From Percocet] Allergy Itching Verified 04/03/19 08:56 oxycodone [From Percocet] Allergy Itching Verified 04/03/19 08:56 NSAIDS (Non-Steroidal AdvReac Other Verified 05/24/22 10:55 Anti-Inflamma Social History (Updated 05/24/22 @ 14:[address] Mu Rao MD) household members: spouse Smoking Status: Never smoker substance use type: does not use ROS ROS ED Constitutional Constitutional ED: Denies chills, fever(s), subjective, sweats or weight loss Eyes Eyes: Denies blurry vision or change in vision ENT ENT ED: Denies ear pain, rhinorrhea or sore throat Cardiovascular Cardiovascular: Denies chest pain, palpitations or racing heartbeat Respiratory/Chest Respiratory/Chest: Denies cough, dyspnea or dyspnea on exertion Gastrointestinal Gastrointestinal: Denies abdominal pain, constipation, diarrhea, melena, nausea or vomiting Genitourinary Genitourinary ED: Reports other Details: Per HPI narrative ; Denies dysuria, hematuria or urinary frequency Musculoskeletal Musculoskeletal: Reports other Details: Per HPI narrative ; Denies arthralgias, myalgias or neck pain Integumentary Denies abscess or rash Neurologic Neurologic: Denies paresthesias or weakness Hematologic/Lymphatic Hematologic/Lymphatic: Denies easy bruising EXAM Physical Exam Const Vital Signs: 05/24/22 10:55 05/24/22 12:36 Temperature 98 F Temperature Source Temporal Pulse Rate 77 64 Respiratory Rate 14 18 Blood Pressure 151/137 H 171/100 H Blood Pressure Mean 141 123 Pulse Ox 98 98 Oxygen Delivery Method Room Air Room Air Positive well nourished and well developed Constitutional Narrative: Patient appears uncomfortable. General Appearance ED: well developed; Negative for pallor HEENT Reports moist mucous membranes normocephalic and atraumatic Eyes PERRL and EOMs intact bilaterally General Eye ED: Negative for pale conjunctiva or scleral icterus Neck no lymphadenopathy, supple and no JVD Resp normal respiratory effort and clear to auscultation bilaterally Cardio regular rate, regular rhythm, S1 normal heart sound, S2 normal heart sound and no murmurs GI non-tender, non-distended and no masses Inspection: abdominal distention Auscultation: normoactive bowel sounds Palpation: soft no CVA tenderness Narrative: Circumcised. Testes are remarkable for the left being much higher than the right. There is an equivocal cremasteric reflex on the left. There is a good cremasteric reflex on the right. He complains of testicular pain to palpation. There is no evidence of inguinal hernia. There is no inguinal lymphadenopathy. There is no dermatologic lesions noted. Groin / Perineum Exam: Negative for edema Back/Spine no CVA tenderness Extremity normal to inspection General Extremety ED: Negative for edema or pulses abnormal General Extremity: Negative for edema or pulses abnormal Neuro oriented x3, CN's II-XII intact bilaterally, moves all extremities, no focal motor deficits and no sensory deficits noted Sensorium / Orientation: alert Psych mental status grossly normal Skin General Skin Exam: Negative for jaundice or pallor Lesions: no lesions Rashes: no rashes MDM MDM MDM Narrative Medical decision making narrative: With a higher riding left testicle than normal with a equivocal cremasteric reflex ultrasound was obtained to rule out torsion. Initially he was not certain if his left or right kidney was removed. UA was obtained to assess for blood to evaluate for possible ureterolithiasis. Patient was medicated with Dilaudid with significant improvement. Patient was reassessed at 1420. He does have reproducible pain at this time. With a normal ultrasound and now knowing that his left kidney was removed ureteral lithiasis. He does have evidence of a hydrocele. Would not expect hydrocele to cause this much discomfort. There is ink vascularity left epididymis that would suggest epididymitis. There are by her epididymal cyst. Lab Data Attestation: I reviewed the patient's lab results. Lab results narrative: CBC normal. Creatinine is elevated 1.4 which is patient's baseline and due to the fact that he has had a left nephrectomy. UA is now get it. Labs: Laboratory Results - last 24 hr 05/24/22 05/24/22 05/24/22 11:28 11:28 12:30 WBC 9.2 RBC 5.17 Hgb 16.0 Hct 47.1 MCV 91.1 MCH 30.9 MCHC 34.0 RDW Std Deviation 42.8 RDW Coeff of Yang 12.9 Plt Count 286 MPV 8.9 Immature Gran % (Auto) 0.200 Neut % (Auto) 71.0 H Lymph % (Auto) 18.0 L [place] % (Auto) 9.6 Eos % (Auto) 0.8 Baso % (Auto) 0.4 Absolute Neuts (auto) 6.5 Absolute Lymphs (auto) 1.65 Nucleated RBC % 0 Sodium 140 Potassium 4.2 Chloride 105 Carbon Dioxide 29.0 Anion Gap 6 BUN 22 H Creatinine 1.40 H Estim Creat Clear Calc 58.22 Est GFR (MDRD) Af Amer 67 Est GFR (MDRD) Non-Af 55 L BUN/Creatinine Ratio 15.7 Glucose 113 H Calcium 9.6 Urine Color Yellow Urine Clarity Clear Urine pH 6.0 Ur Specific [place] 1.015 Urine Protein 30 H Urine Glucose (UA) Normal Urine Ketones Negative Urine Occult Blood Negative Urine Nitrite Negative Urine Bilirubin Negative Urine Urobilinogen Normal Ur Leukocyte Esterase 25 H Urine RBC 0 SEEN Urine WBC 0 SEEN Ur Squamous Epith Cells 0 SEEN Urine Bacteria 0 SEEN Urine Mucus 0 SEEN Radiography Diagnostic Testing: Clinical Impression(s) from Imaging Studies Testicular Ultrasound 05/24/22 11:15 IMPRESSION: Normal bilateral testicles, no sonographic evidence of intratesticular mass or torsion Increased vascularity to the left epididymis suggests left epididymitis. Bilateral epididymal cysts. Small left hydrocele Electronically Signed: Shaun Lemus MD at 12:23 EDT Reading Location ID and State: [facility] / [place] , Service support , Discharge Plan Triage Chief Complaint: Male Pain/Injury ED Provider: Mu Rao Dx/Rx/DC Orders Clinical Impression: Epididymitis, left, HTN (hypertension), H/O left nephrectomy Instructions: ED Epididymitis Prescriptions: New hydrocodone-acetaminophen 7.5-325 mg tablet 1 tab PO Q8H PRN (Reason: pain) 4 Days Qty: 10 0RF No Action citalopram 20 MG tablet 20 mg PO DAILY Label Comments: TAKE 1 TABLET BY MOUTH ONCE DAILY metoprolol tartrate 25 MG tablet 25 mg PO BID Label Comments: Take 1 tablet by mouth once daily. Primary Care Provider: Fredis Ozuna Referrals: Fredis Ozuna DO [Primary Care Provider] - Disposition Disposition: Home, Self Care
[2022-05-24 14:37] VITALS: BP 155/95; O2SAT 96
== END 2022-05-24 14:42 | disposition home or self-care (01) ==
PROVIDERS: Emergency Provider Emergency Medicine; PCP Student in an Organized Health Care Education/Training Program; Visit Provider Emergency Medicine
DX: N45.1 Epididymitis (principal); N20.1 Calculus of ureter; N43.3 Hydrocele, unspecified; I10 Essential (primary) hypertension; Z90.5 Acquired absence of kidney; N50.3 Cyst of epididymis; R10.2 Pelvic and perineal pain
CPT/HCPCS: 76870; 80048; 81001; 85025; 93976; 96361; 96374; 96375; 96376; 99283; J7030; A4216; J2405